=== PATIENT | female | born 1955 | race Two or more races ===

== ENCOUNTER 2017-07-27 12:43 | Outpatient (CLI) | payer OTHER | END 2017-07-27 16:39 | disposition home or self-care (01) | LOC: SONOGRAMA 12:43 | DX: N63.11 Unspecified lump in the right breast, upper outer quadrant (principal) ==

== ENCOUNTER 2018-05-20 09:36 | Outpatient (CLI) | payer OTHER | END 2018-05-20 09:50 | disposition home or self-care (01) | LOC: RAD 501 09:36 | DX: M51.36 Other intervertebral disc degeneration, lumbar region (principal) ==

== ENCOUNTER 2018-07-15 09:23 | Outpatient (CLI) | payer OTHER | END 2018-07-15 09:31 | disposition home or self-care (01) | LOC: LAB 09:23 | DX: Z01.818 Encounter for other preprocedural examination (principal); M51.36 Other intervertebral disc degeneration, lumbar region; M51.26 Other intervertebral disc displacement, lumbar region; M54.16 Radiculopathy, lumbar region ==

== ENCOUNTER 2018-08-13 09:16 | Day surgery (SDC) | payer OTHER | END 2018-08-13 14:25 | disposition home or self-care (01) | LOC: CIR.AMB 09:16 | DX: M51.36 Other intervertebral disc degeneration, lumbar region (principal); M99.43 Connective tissue stenosis of neural canal of lumbar region; M99.63 Osseous and subluxation stenosis of intervertebral foramina of lumbar region; M51.16 Intervertebral disc disorders with radiculopathy, lumbar region ==